=== PATIENT | male | born 1990 | race Asian ===

== ENCOUNTER 2019-11-14 16:32 | Emergency (ER) | payer BC ==
[~2019-11-14] VITALS: Ht 170.2 cm; Wt 93.4 kg
[2019-11-14 19:25] VITALS: BP 139/70; TEMP 98.1
== END 2019-11-14 19:26 | disposition home or self-care (01) ==
LOC: ED 16:32
DX: E87.6 Hypokalemia (principal); R19.7 Diarrhea, unspecified; K50.90 Crohn's disease, unspecified, without complications; N39.0 Urinary tract infection, site not specified
CPT/HCPCS: 81000; 87088; 87490; 87590; 96372; 99283; J0696

== ENCOUNTER 2020-07-10 13:33 | Emergency (ER) | payer BC ==
[~2020-07-10] VITALS: Ht 170.2 cm; Wt 93.4 kg
[2020-07-10 13:42] VITALS: TEMP 98.9
[2020-07-10 15:00] VITALS: BP 136/78
== END 2020-07-10 15:01 | disposition home or self-care (01) ==
LOC: ED 13:33
DX: J45.901 Unspecified asthma with (acute) exacerbation (principal); F17.210 Nicotine dependence, cigarettes, uncomplicated
CPT/HCPCS: 94664; 99283

== ENCOUNTER 2020-07-21 06:40 | Emergency (ER) | payer BC ==
[~2020-07-21] VITALS: Ht 170.2 cm; Wt 93.0 kg
[2020-07-21 06:45] VITALS: TEMP 98.1
[2020-07-21 08:03] LABS: PLATELET COUNT 193 K/uL (142-355)
[2020-07-21 08:08] LABS: POTASSIUM 3.4 mmol/L (3.6-5.2)
[2020-07-21 11:30] VITALS: BP 132/73
== END 2020-07-21 11:30 | disposition home or self-care (01) ==
LOC: ED 06:40
PROVIDERS: Emergency Medicine Emergency Medical Services
DX: N23 Unspecified renal colic (principal); N39.0 Urinary tract infection, site not specified
CPT/HCPCS: 36415; 80053; 81000; 85027; 87086; 87088; 96360; 96375; 99284; J1170; J1885; J2405

== ENCOUNTER 2020-08-16 06:16 | Emergency (ER) | payer BC ==
[~2020-08-16] VITALS: Ht 170.2 cm; Wt 93.0 kg
[2020-08-16 06:30] VITALS: BP 137/108; TEMP 98.9
[2020-08-16 07:22] LABS: PLATELET COUNT 177 K/uL (142-355)
[2020-08-16 07:38] LABS: POTASSIUM 3.9 mmol/L (3.6-5.2)
== END 2020-08-16 08:52 | disposition home or self-care (01) ==
LOC: ED 06:16
DX: N34.2 Other urethritis (principal); N39.0 Urinary tract infection, site not specified
CPT/HCPCS: 80053; 81000; 83690; 85027; 87086; 87088; 87490; 87590; 96372; 96374; 99284; J0696; J1885

== ENCOUNTER 2021-01-27 16:44 | Emergency (ER) | payer OTHER ==
[~2021-01-27] VITALS: Ht 170.2 cm; Wt 93.0 kg
[2021-01-27 17:20] VITALS: TEMP 98.6
[2021-01-27 18:22] VITALS: BP 124/70
== END 2021-01-27 18:23 | disposition home or self-care (01) ==
LOC: ED 16:44
DX: Z20.2 Contact with and (suspected) exposure to infections with a predominantly sexual mode of transmission (principal)
CPT/HCPCS: 96372; 99283; J0696

== ENCOUNTER 2022-10-23 13:24 | Emergency (ER) | payer BC ==
[~2022-10-23] VITALS: Ht 170.2 cm; Wt 90.7 kg
[2022-10-23 13:35] VITALS: TEMP 99.7
[2022-10-23 14:42] LABS: PLATELET COUNT 238 K/uL (142-355)
[2022-10-23 14:49] LABS: POTASSIUM 3.7 mmol/L (3.6-5.2)
[2022-10-23 16:14] VITALS: BP 135/87
== END 2022-10-23 16:13 | disposition home or self-care (01) ==
LOC: ED 13:24
PROVIDERS: Emergency Medicine Emergency Medical Services
DX: R09.1 Pleurisy (principal); F14.10 Cocaine abuse, uncomplicated; J40 Bronchitis, not specified as acute or chronic; N39.0 Urinary tract infection, site not specified; Z20.822 Contact with and (suspected) exposure to COVID-19; F17.210 Nicotine dependence, cigarettes, uncomplicated
CPT/HCPCS: 80053; 80307; 81002; 84484; 85027; 85379; 85610; 87040; 87502; 87635; 93005; 94664; 96360; 96361; 96365; 96375; 99284; J0696; J1885; U0001